=== PATIENT | female | born 1990 | race Two or more races ===

== ENCOUNTER 2024-06-11 12:15 | Outpatient (RCR) | payer MEDICAID, SELFPAY ==
--- NOTE | 2024-04-30 12:18 | XR_ITS ---
Examination: Biophysical profile, ultrasound Date and time of exam: April 30, 2024, 1224 hours INDICATIONS: Diagnosis diabetes type 2, Technique: Multiple transabdominal sonographic images of the pelvis abdomen obtained. Attention is directed to the breathing movement, gross body movement, amniotic fluid volume and tone. Findings: Amniotic fluid index 16.8 cm Total biophysical profile is 8 of 8. breathing movement is 2. Gross body movement is 2. tone is 2. Qualitative amniotic fluid volume is 2 Impression: Biophysical profile is 8 of 8.
[2024-04-30 12:54] VITALS: BP 111/65; PULSE 69; RESP 18; TEMP 36.9
--- NOTE | 2024-05-07 12:29 | XR_ITS ---
Examination: Biophysical profile, ultrasound Date and time of exam: April 29, 2024 1243 hours INDICATIONS: Diagnosis type 2 diabetes Technique: Multiple transabdominal sonographic images of the pelvis abdomen obtained. Attention is directed to the breathing movement, gross body movement, amniotic fluid volume and tone. Findings: Amniotic fluid index 18.5 cm Total biophysical profile is 8 of 8. breathing movement is 2. Gross body movement is 2. tone is 2. Qualitative amniotic fluid volume is 2 Impression: Biophysical profile is 8 of 8.
[2024-05-07 13:28] VITALS: BP 112/68; PULSE 65; RESP 18; TEMP 36.7
--- NOTE | 2024-05-14 12:17 | XR_ITS ---
Examination: Biophysical profile, ultrasound Date and time of exam: May 14, 2024 at 12:28 PM INDICATIONS: Diagnosis pre-existing diabetes type 2 Technique: Multiple transabdominal sonographic images of the pelvis abdomen obtained. Attention is directed to the breathing movement, gross body movement, amniotic fluid volume and tone. Findings: Amniotic fluid index 17.7 cm Total biophysical profile is 8 of 8. breathing movement is 2. Gross body movement is 2. tone is 2. Qualitative amniotic fluid volume is 2 Impression: Biophysical profile is 8 of 8.
[2024-05-14 13:09] VITALS: BP 102/59; PULSE 60; RESP 17; TEMP 36.7
--- NOTE | 2024-05-14 13:49 | PC.NURSE ---
RN SPOKE TO DR MCINTYRE GAVE SBAR AND PRELIMINARY U/S REPORT OF BPP AND JHONNY. PROVIDER STATES PT CAN GO HOME. RN EDUCATED PT ON KICK COUNTS AND EARLY LABOR PRECAUTIONS. PT STABLE AND AMBULATORY UPON EXIT
--- NOTE | 2024-05-21 12:27 | XR_ITS ---
Examination: Biophysical profile, ultrasound Date and time of exam: May 21, 2024 1234 hours INDICATIONS: Diagnosis pre-existing type 2 diabetes Technique: Multiple transabdominal sonographic images of the pelvis abdomen obtained. Attention is directed to the breathing movement, gross body movement, amniotic fluid volume and tone. Findings: Amniotic fluid index 17.6 cm Total biophysical profile is 8 of 8. breathing movement is 2. Gross body movement is 2. tone is 2. Qualitative amniotic fluid volume is 2 Impression: Biophysical profile is 8 of 8.
[2024-05-21 13:24] VITALS: BP 95/58; PULSE 75; RESP 16; TEMP 36.8
--- NOTE | 2024-05-28 12:26 | XR_ITS ---
Examination: Biophysical profile, ultrasound Date and time of exam: May 28, 2024 1239 hours INDICATIONS: Diagnosis pre-existing type 2 diabetes Technique: Multiple transabdominal sonographic images of the pelvis abdomen obtained. Attention is directed to the breathing movement, gross body movement, amniotic fluid volume and tone. Findings: Amniotic fluid index 18.5 cm Total biophysical profile is 8 of 8. breathing movement is 2. Gross body movement is 2. tone is 2. Qualitative amniotic fluid volume is 2 Impression: Biophysical profile is 8 of 8.
[2024-05-28 13:37] VITALS: BP 115/68; PULSE 61; RESP 16; TEMP 36.7
--- NOTE | 2024-06-04 12:15 | XR_ITS ---
Examination: Biophysical profile, ultrasound Date and time of exam: June 04, 2024 1219 hrs. Indications: Diagnosis pre-existing diabetes Technique: Multiple transabdominal sonographic images of the pelvis abdomen obtained. Attention is directed to the breathing movement, gross body movement, amniotic fluid volume and tone. Findings: Amniotic fluid index 18.5 cm Total biophysical profile is 8 of 8. breathing movement is 2. Gross body movement is 2. tone is 2. Qualitative amniotic fluid volume is 2 Impression: Biophysical profile is 8 of 8.
[2024-06-04 13:51] VITALS: BP 118/67; PULSE 61; RESP 16; TEMP 36.8
--- NOTE | 2024-06-11 12:24 | XR_ITS ---
Examination: Biophysical profile, ultrasound Date and time of exam: June 11, 2024 1232 hours INDICATIONS: Diagnosis pre-existing diabetes Technique: Multiple transabdominal sonographic images of the pelvis abdomen obtained. Attention is directed to the breathing movement, gross body movement, amniotic fluid volume and tone. Findings: Amniotic fluid index 20.6 cm Total biophysical profile is 8 of 8. breathing movement is 2. Gross body movement is 2. tone is 2. Qualitative amniotic fluid volume is 2 Impression: Biophysical profile is 8 of 8.
[2024-06-11 12:54] VITALS: BP 115/65; PULSE 76; RESP 16; TEMP 37.1
== END 2024-06-11 23:59 | disposition home or self-care (01) ==
LOC: S4S1 12:15
PROVIDERS: PCP Family Medicine; Referring Provider Obstetrics & Gynecology; Visit Provider Obstetrics & Gynecology
DX: O24.113 Pre-existing type 2 diabetes mellitus, in pregnancy, third trimester (principal); E11.9 Type 2 diabetes mellitus without complications; Z3A.38 38 weeks gestation of pregnancy
CPT/HCPCS: 59025; 76819

== ENCOUNTER 2024-06-17 00:52 | Inpatient (IN) | payer MEDICAID, SELFPAY ==
[2024-06-17] VITALS (272 sets, daily range): BP systolic 103–136; BP diastolic 50–77; PULSE 57–96; RESP 16–18; TEMP 36.6–37.2; O2SAT 90–100
--- NOTE | 2024-06-17 02:21 | XR_ITS ---
Examination: age Limited Technique: Limited transabdominal sonographic images pelvis Exam date and time: August 17, 2024 0456 hrs. Indications: Pelvic contractions beginning one week ago, unknown presentation. Findings: presentation transverse head maternal left Cardiac motion 140 BPM Impression: presentation transverse
[2024-06-17] MEDS: RINGERS LACTATED 1000 ML 1,000 ML 125 ML IV (03:22)
--- NOTE | 2024-06-17 03:27 | PRELIM_ITS ---
Limited obstetric ultrasound. Clinical history: presentation. Findings and Impression: There is a gravid uterus with a live fetus in transverse presentation, head to maternal left. cardiac activity is present at a heart rate of 140 beats per minute. The placenta is anterior in location. Report Electronically Signed By: Jean Carlos Hathaway 06/17/2024 3:26:05 AM [EST]
[2024-06-17 03:37] LABS: Basophils % (Auto) 0 % (0-2.5); Eosinophils # (Auto) 0.1 Thou/mm3 (0.0-0.5); Eosinophils % (Auto) 1 % (0-10); Hematocrit 37.3 % (36.0-46.0); Hemoglobin 12.8 g/dL (12.0-16.0); Immature Granulocytes % (Auto) 1 % (0-0); Lymphocytes # (Auto) 1.9 Thou/mm3 (1.0-4.8); Lymphocytes % (Auto) 17 % (10-50); Mean Corpuscular HGB Conc 34.3 g/dl (31.0-37.0); Mean Corpuscular Volume 90 fL (80-100); Monocytes # (Auto) 0.7 Thou/mm3 (0.0-0.8); Monocytes % (Auto) 7 % (0-12); Neutrophils # (Auto) 8.3 Thou/mm3 (1.8-7.7); Neutrophils % (Auto) 74 % (37-80); Nucleated Red Blood Cell % 0 /100 WBC (0); Platelet Count 222 Thou/mm3 (140-440); RDW Standard Deviation 47.8 fL (36.4-46.3); Red Blood Count 4.13 Miln/mm3 (4.00-5.20); White Blood Count 11.2 Thou/mm3 (3.6-11.0)
[2024-06-17 04:10] LABS: Syphilis Nonreactive (Nonreactive)
[2024-06-17] MEDS: FAMOTIDINE INJ 10 MG/ML VIAL 2 ML 20 MG IV (07:35)
[2024-06-17] MEDS: CITRIC ACID/SODIUM CITR 15 ML UDC (BICITRA) 30 ML PO (07:35)
[2024-06-17] MEDS: ceFAZolin/D5W 2 GM IV 2 GM/100 ML BAG IV (07:36)
--- NOTE | 2024-06-17 07:54 | ESHP_ITS ---
Documentation for date of: 06/17/24 OB Labor/Induct. HPI History of Present Illness : 3 Para: 1 Term pregnancies: 1 pregnancies: 0 Living children: 1 History of Abortions: Spontaneous and Elective: 0 History of Vaginal deliveries: 1 History of sections: No History of : No Date of last menstrual period: 09/18/23 AMBREEN: 06/23/24 Gestational Age (weeks): 39 Gestational Age (days): 1 Gestational age based on last menstrual period: 39 History of present illness: Mia presents for scheduled IOL for T2DM well controlled with diet. She has had no painful ctx, though she does feel ctx occasionally. No LOF. No vb. Feels normal movement. History of Present Dating criteria: LMP confirmed by 1st trimester US Adequate Care: Yes Ultrasounds: normal 1st trimester US and normal mid trimester US Obstetrical complications: other (T2DM well controlled with diet (starting HgbA1c 4.9), AMA age 33) Narrative: : early sab 2017 without interventions G2: term uncomplicated 2020 Good care in this with Dr. Cat and [facility] Labs Maternal Blood Type: O Pos Labs: Positive: Rubella Titre and Negative: RPR, Hepatitis B, HIV, Chlamydia and Gonorrhea Review of Systems Review of Systems Narrative Review of Systems: Review of Systems Systems Reviewed: All systems reviewed, normal except as documented Constitutional Constitutional: Denies body ache(s), Denies chills, Denies fever(s) and Denies headache(s) ENT Ears, Nose, Mouth, and Throat: Denies headache(s) and Denies vertigo Cardiovascular Cardiovascular: Denies chest pain, Denies palpitations, Denies dyspnea and Denies syncope Respiratory Respiratory: Denies cough, Denies dyspnea Gastrointestinal Gastrointestinal: Denies nausea and Denies vomiting Neurologic Neurologic: Denies convulsions, Denies headache(s), Denies other visual disturbances, Denies syncope and Denies vertigo Past Medical History Family History OTHER FAMILY HX: Both parents and sister have T2DM, aunts with breast cancer dx Surgical History SURGICAL: Negative Section OTHER SURGICAL HX: denies any Social History SOCIAL: No tobacco, ETOH, illicit drug use Past Medical History Comments PMH COMMENT: T2DM well controlled with diet (starting HgbA1c 4.9) Meds Home Medications and Allergies Allergies Allergy/AdvReac Type Severity Reaction Status Date / Time No Known Allergies Allergy Verified 06/17/24 01:08 OB Exam Physical Exam Vital signs: Temp Pulse Resp BP Pulse Ox O2 Del Method 98.6 F 67 18 130/77 96 Room Air 06/17/24 05:04 06/17/24 07:39 06/17/24 05:04 06/17/24 07:39 06/17/24 07:51 06/17/24 05:04 Narrative: General: well developed, well nourished, no acute distress, conversant Cardiac: normal heart rate Lungs: breathing without distress Abdomen: soft, gravid, non-tender, no rebound or guarding Extremities: trace edema BLE Detailed Labor and Delivery Exam Dilation (cm): 1 Effacement (%): 0 Cervix position: posterior station: -3 Consistency: medium Presentation: Vertex (by Dr. Owusu's bedside ultrasound) Membranes: intact Baseline heart rate: 145 monitor accelerations: 15x15 monitor decelerations: None manager intermediate variability: Moderate (11-25) Contraction frequency (min): irregular OB Results Labs 06/17/24 01:37 Labs: Short CBC 06/17/24 Range/Units 01:37 WBC 11.2 H (3.6-11.0) Thou/mm3 Hgb 12.8 (12.0-16.0) g/dL Hct 37.3 (36.0-46.0) % Plt Count 222 (140-440) Thou/mm3 OB Assessment & Plan Assessment and Plan (1) Encounter for induction of labor: Status: Acute Assessment and plan: Mia is a 33yo with SIUP at 39&1wk presenting for scheduled IOL for T2DM. SCE 1/thick/high and RN not able to palpate head, so ultrasound was ordered which resulted (verbally, still no report available) transverse lie. Dr. Owusu repeated bedside ultrasound at 0815 and presentation is now cephalic. Vitals wnl, benign exam. Reassuring assessment. PMhx/ complicated by: T2DM well controlled with diet (starting HgbA1c 4.9) AMA age 33 Plan: -Admit to L&D -Establish IV, routine labs -CEFM -Will apply abdominal binder to keep presentation cephalic -Will proceed with IOL: cytotec and muñoz bulb -GDM diet [id number], then clear liquids in active labor. Fingerstick glucose q4hr to start. -Discussed plan fully with patient and her , she is happy to proceed with IOL now that presentation is cephalic -Safe to proceed (2) Pre-existing diabetes mellitus affecting in third trimester, antepartum: Status: Acute (3) Advanced maternal age (AMA) in : Status: Acute
[2024-06-17] MEDS: MISOPROSTOL 50 mCg TABLET 25 MCG VAGINAL (09:05)
--- NOTE | 2024-06-17 09:13 | PD.LDPN ---
Documentation for date of: 06/17/24 OB Labor Progress Note Pelvic Exam Dilation (cm): 1 Effacement (%): 50 station: -3 Contractions Contraction frequency: irregular Assessment and Plan Comments: Cat I FHRT with irregular ctx SCE: /-3, mid/soft, cephalic 25mcg cytotec placed PV and cook muñoz balloon placed with only 40cc in uterine balloon, well tolerated Will await muñoz balloon falling out and repeat cytotec 25mcg PV Q4hr as ctx pattern allows Safe to proceed
[2024-06-17] MEDS: fentaNYL CIT INJ 50 mCg/ML AMP 2ML 100 MCG IV (14:51)
--- NOTE | 2024-06-17 17:13 | PD.LDPN ---
Documentation for date of: 06/17/24 OB Labor Progress Note Pelvic Exam Dilation (cm): 6 Effacement (%): 50 station: -2 Contractions Contraction frequency: q4 Assessment and Plan Comments: Patient doing well, feels ctx but not terribly strong Vitals wnl, afebrile Cat I FHRT, ctx q4min SCE: /-2, bulging bag Will start IV pitocin and titrate per protocol. Patient can have epidural when she desires and then plan for AROM after CEFM Continue to closely monitor Safe to proceed Marisa Owusu MD
[2024-06-17] MEDS: OXYTOCIN in NS 30 units 30 UNIT/500 ML BAG IV (18:10)
[2024-06-17] MEDS: RINGERS LACTATED 1000 ML 1,000 ML 999 ML IV (18:15)
--- NOTE | 2024-06-17 20:37 | PD.LDPN ---
Documentation for date of: 06/17/24 OB Labor Progress Note Pelvic Exam Dilation (cm): 6 Effacement (%): 50 station: -2 Contractions Contraction frequency: q3-4 Assessment and Plan Comments: Patient recently received epidural and now comfortable. IV pitocin at 2mu. Vitals wnl afebrile SCE: /-2, intact Plan to continue to titrate IV pitocin per protocol. Once there is more effacement and descent, plan for AROM. CEFM Continue to closely monitor Safe to proceed
[2024-06-18] VITALS (149 sets, daily range): BP systolic 107–149; BP diastolic 57–90; PULSE 53–91; RESP 16–20; TEMP 36.7–37.9; O2SAT 85–100
[2024-06-18] MEDS: RINGERS LACTATED 1000 ML 1,000 ML 125 ML IV ×2 (01:15→06:05)
--- NOTE | 2024-06-18 02:24 | PD.LDPN ---
Documentation for date of: 06/18/24 OB Labor Progress Note Pelvic Exam Dilation (cm): 6 Effacement (%): 60 station: -2 Contractions Contraction frequency: q3-4 Assessment and Plan Comments: Patient comfortable with epidural. Pitocin at 10mu. Vitals wnl, afebrile Cat I FHRT Ctx q3-4min SCE: 6/60/-2, AROM performed while fundal pressure applied, large amount of clear fluid, well tolerated. head now well engaged on cervix. FSE and IUPC placed. Plan: -continue to titrate IV pitocin to adequate MVUs -CEFM -Continue to closely monitor -Safe to proceed
[2024-06-18] MEDS: OXYTOCIN in NS 20 units 20 UNIT/1,000 ML BAG 125 UNIT IV (07:45)
[2024-06-18] MEDS: BENZO/LANO/ALOE (Dermoplast) 60 GM CAN 1 SPRAY TOP (07:45)
[2024-06-18] MEDS: MISOPROSTOL 200 mCg TABLET 800 MCG PR (07:50)
--- NOTE | 2024-06-18 08:03 | PD.LDDELS ---
Data (Mandel) Data Hx Section: No Para: 1 Delivery Data (Mandel) Labor Data Stimulated/Augmented: Yes Induction: Yes Method: Oxytocin ROM Date: 06/18/24 ROM Time: 02:08 Rupture Type: AROM Amniotic Fluid: Clear Delivery Data Labor Onset Stage 1 Date: 06/17/24 Labor Onset Stage 1 Time: 13:15 Labor Onset Stage 2 Date: 06/18/24 Labor Onset Stage 2 Time: 07:16 Delivery Date: 06/18/24 Delivery Time: 07:30 Placenta Delivery Date: 06/18/24 Placenta Delivery Time: 07:38 Delivered by: Marisa Owusu Delivery nurse: Isis Foy Other staff at delivery: Nursery Nurse Other staff at delivery: Dione Juárez Delivery Method Delivery: Vaginal Delivery Type: Spontaneous Anesthesia Type Primary Anesthesia: Epidural EBL Estimated blood loss (ml): 200 Additional Procedures Mia is a 33yo [id number] s/p uncomplicated at 39&2wk after undergoing IOL for T2DM, delivering at 0730 on 06/18/2024. On presentation, SCE was 1/thick/high. She progressed with cytotec, muñoz bulb and then pitocin augmentation as well as AROM to C/C/+2 at which point she began pushing. She had received an epidural. With good maternal pushing efforts, infant's head delivered OA and restituted DEANNE. Left anterior shoulder delivered easily followed by posterior shoulder and corpus. had spontaneous cry and was vigorous even before body was fully delivered. Apgars 9/9. placed on maternal abdomen where nose/mouth were suctioned and infant dried/stimulated. After approximately 3 minutes, cord was clamped x2 and cut by FOB. Cord blood collected for typing. With fundal massage and cord traction, placenta delivered spontaneously and intact with 3 vessel centrally inserted cord. Bimanual massage performed and IV pitocin given per protocol with fundus then firm at u-2cm and hemostasis noted. Inspection of perineum and vagina revealed a 2nd degree midline perineal laceration which was repaired in routine fashion with 3-0 vicryl- total reapproximation and hemostasis achieved. Small trickle of blood, so sweep just within cervix/DARRIN performed which retrieved a small amount of clot. 800mcg cytotec placed WA for prophylaxis against future bleeding. All counts correct x2. Mom and were doing well when I left the room. Marisa Owusu MD Complications Complications: none Data (Mandel) Data Infant Gender: Male Weight Grams: 3895 1 Minute Total: 9 5 Minute Total: 9
--- NOTE | 2024-06-18 10:14 | PC.NURSE ---
Dr. Owusu called to verify diet order of gestational diabetic now that pt has delivered. Per MD order pt may have a carb consistent diet, RN to call MD when blood sugar is >200.
[2024-06-18] MEDS: DOCUSATE SOD 100 MG CAPSULE PO ×2 (10:26→20:04)
[2024-06-18 13:53] LABS: Basophils % (Auto) 0 % (0-2.5); Eosinophils % (Auto) 0 % (0-10); Hematocrit 38.2 % (36.0-46.0); Hemoglobin 13.3 g/dL (12.0-16.0); Immature Granulocytes % (Auto) 1 % (0-0); Lymphocytes # (Auto) 1.7 Thou/mm3 (1.0-4.8); Lymphocytes % (Auto) 9 % (10-50); Mean Corpuscular HGB Conc 34.8 g/dl (31.0-37.0); Mean Corpuscular Hemoglobin 31.7 pg (25.0-35.0); Mean Corpuscular Volume 91 fL (80-100); Monocytes % (Auto) 5 % (0-12); Neutrophils # (Auto) 15.3 Thou/mm3 (1.8-7.7); Neutrophils % (Auto) 85 % (37-80); Nucleated Red Blood Cell % 0 /100 WBC (0); Platelet Count 226 Thou/mm3 (140-440); RDW Standard Deviation 49.1 fL (36.4-46.3); White Blood Count 18.1 Thou/mm3 (3.6-11.0)
[2024-06-18] MEDS: ACETAMINOPHEN 325 MG TABLET 650 MG PO (15:38)
[2024-06-19 03:30] VITALS: BP 102/62; PULSE 61; RESP 16; TEMP 36.6; O2SAT 95
[2024-06-19 08:10] VITALS: BP 119/76; PULSE 68; RESP 17; TEMP 36.9; O2SAT 97
--- NOTE | 2024-06-19 10:12 | ESDS_ITS ---
DS: Providers Provider Date of admission: 06/17/24 00:52 Primary care physician: Physician No Primary/Family Admitting Provider: Marisa Owusu MD Attending Provider on Admission: Marisa Owusu MD Consults: 06/18/24 08:00 Referral Routine Comment: Attending Provider on DC: Marisa Owusu MD Discharging Provider: Marisa Owusu MD DS: Diagnosis Discharge Diagnosis (1) Encounter for induction of labor: Status: Acute (2) Advanced maternal age (AMA) in : Status: Acute (3) Pre-existing diabetes mellitus affecting in third trimester, antepartum: Status: Acute Problem List Completed Was Problem List Reviewed/Reconciled?: Yes Summary/Hosp Course Brief History: Mia presents for scheduled IOL for T2DM well controlled with diet. She has had no painful ctx, though she does feel ctx occasionally. No LOF. No vb. Feels normal movement. Mia is a 33yo [id number] s/p uncomplicated at 39&2wk after undergoing IOL for T2DM, delivering at 0730 on 06/18/2024. She is doing well on PPD1 and has had an uncomplicated course, meeting all milestones and feels ready for discharge home. She is ambulating without lightheadedness, tolerating regular diet no n/v, spontaneously voiding without issue. She has no chest pain or s hortness of breath. No fevers or chills. Minimal, appropriate discomfort. Vitals normal, benign exam. Hemodynamically stable with no evidence of infection. PP Hgb 13.3. Status at Discharge Functional status at discharge: independent ambulation Overall status at discharge: patient is back to baseline Time Spent with Patient Time attestation: Total time spent providing and/or coordinating discharge services: Exam Vital Signs Temp Pulse Resp BP Pulse Ox O2 Del Method 98.5 F 68 17 119/76 97 Room Air 06/19/24 08:10 06/19/24 08:10 06/19/24 08:10 06/19/24 08:10 06/19/24 08:10 06/19/24 08:10 Narrative Exam General: well developed, well nourished, no acute distress, conversant Cardiac: normal heart rate Lungs: breathing without distress Abdomen: soft, post-gravid, non-tender, no rebound or guarding, Fundus firm at u-3cm. Extremities: no pain with palpation of calves, trace edema of BLE Discharge Plan Plan Patient Disposition: HOME (Self Care) Patient condition on transfer: Stable Prescriptions/Referrals Prescriptions/Med Rec: New docusate sodium 100 mg Capsule 100 mg PO BID 10 Days Qty: 20 0RF ibuprofen 800 mg tablet 800 mg PO Q8H PRN (Reason: See Comments) 10 Days Qty: 30 0RF Referrals: No Primary/Family,Physician [Primary Care Provider] - Patient/Caregiver Discharge Instructions Discharge Activity: activity as tolerated and other Other Discharge Activity Instructions:: vaginal rest and no heavy lifting more than 10 pounds for 6 weeks Other Discharge Diet Instructions: Diabetic diet Education Materials: After a Vaginal , Understanding Blues, Nutrition While Print Language: Citizen Of [place] Activity Restrictions/Additional Instructions: follow up for visit in 4 weeks, call clinic for appointment Stand Alone Forms: Roselia Award Info., Patient Portal Info Letter Discharge Order Discharge Orders: Discharge (Routine); Ordered 06/19/24 Ordered By: Marisa Owusu Planned Discharge Date 06/19/24
--- NOTE | 2024-06-19 10:14 | PC.SS ---
SS conducted bedside contact with the patient to address nursing referral indicating patient possessed history of anxiety.? SS introduced self and role.? SS discussed with patient basis of referral.? Patient confirmed after her 1st child, she had depression and anxiety.? Patient was not on any medication.? Currently, no impairments, no history of documented mental health. Patient resides at home with spouse.? Spouse, is Chepe ARCHER. Patient is the patient?s second child. Patient?s 1st child at home is 4 years old. is baby boyKermit. Baby was born at 39 weeks pre term vaginal .? Dr. Cat and Dr. Minor provided care.? Patient was consistent with . Patient plans on breast feeding and bottle feeding. Patient is not aligned with TANF. Patient is aligned with SNAP and WIC. Patient denies history of drug/alcohol abuse, domestic violence or any documented mental illness. Patient describes possessing positive support from family. Patient has all resources to include: car seat, clothing and supplies.? nutritional services director provided resources to include:? [employer], Warm Line and community numbers. No further intervention required at this time, adoption social worker will be available to address any further concerns. SS updated bedside nurse. Patient to discharge home this morning.
== END 2024-06-19 11:02 | disposition home or self-care (01) | DRG 560 ==
LOC: S4SX 06-18 07:43 → S4NX 06-18 09:43
PROVIDERS: Admitting Provider Obstetrics & Gynecology; Visit Provider Obstetrics & Gynecology
DX: O24.12 Pre-existing type 2 diabetes mellitus, in childbirth (principal); Z37.0 Single live birth; Z3A.39 39 weeks gestation of pregnancy
CPT/HCPCS: 36415; 59409; 76815; 85025; 86780; 86850; 86900; 86901; 94762; J0689; J2590; J2795; J3010; J3490; J7120; S0191; A9270